=== PATIENT | female | born 1950 | race Caucasian/White ===

== ENCOUNTER 2019-06-11 11:20 | Observation (INO) | payer MEDICARE ==
[~2019-06-11 11:20] MED LIST: Buffered Lidocaine 1% SYRIN* 1 ML/SYRINGE INTRADERM ONE; Glycopyrrolate IV* 0.2 MG/ML 1 ML VIAL ONE; Lactated Ringers 1000 ML Bag* 1,000 ML IV SCH; Lidocaine 2% PF * 5 ML VIAL ONE; Midazolam* 1 MG/ML 2 ML VIAL (2 MG) ONE; Neostigmine Methylsulfate* 1 MG/ML 10 ML VIAL (1 mg/ml) ONE; Propofol* 10 MG/ML 20 ML BTL ONE; Rocuronium* 10 MG/ML VIAL ONE; fentaNYL* 50 MCG/ML 2 ML VIAL (100 MCG VIAL) ONE
[2019-06-11] MEDS ORDERED: Lidocaine 1% w EPI 1:200,000* 30 ML VIAL ONE (11:33)
[2019-06-11] MEDS ORDERED: Bupivacaine 0.25% SDV PF* 10 ML VIAL INJ ONE (11:34)
[2019-06-11] MEDS ORDERED: Thrombin 5,000 UNITS* 1 APPLIC KIT - topical use - TOPICAL ONE (11:34)
[2019-06-11] MEDS ORDERED: Bacitracin INJECTION* 50,000 UNITS ONE (11:34)
[2019-06-11] MEDS ORDERED: ceFAZolin 2 GM in NS PREMIX(*) 2 GM/100 ML BAG IVPB ONE (11:43)
[2019-06-11] MEDS ORDERED: Buffered Lidocaine 1% SYRIN* 1 ML/SYRINGE INTRADERM ONE (11:43)
[2019-06-11] MEDS ORDERED: Phenylephrine 40 MCG/ML SYRINGE ONE (12:26)
[2019-06-11] MEDS ORDERED: Ondansetron INJ* 2 MG/ML VIAL ONE (13:03)
[2019-06-11] MEDS ORDERED: Metoclopramide IV* 5 MG/ML 2 ML VIAL ONE (13:03)
[2019-06-11] MEDS ORDERED: Dexamethasone IV* 4 MG/ML 1 ML (4 MG) ONE (13:03)
[2019-06-11] MEDS ORDERED: Ketorolac INJ* 30 MG/ML 1 ML VIAL ONE (13:03)
[2019-06-11] MEDS ORDERED: Acetaminophen IV 1GM/100ML * 100 ML ONE (13:03)
[2019-06-11] MEDS ORDERED: Phenylephrine 10 MG/ML VIAL* 1 ML VIAL ONE (13:13)
[2019-06-11] MEDS ORDERED: Rocuronium* 10 MG/ML VIAL ONE (13:22)
[2019-06-11] MEDS ORDERED: DiMENhydriNATE IV* 50 MG/ML VIAL IV PUSH PRN (14:33)
[2019-06-11] MEDS ORDERED: Naloxone* 0.4 MG/ML 1 ML VIAL IV PRN (14:33)
[2019-06-11] MEDS ORDERED: Sugammadex * 200 MG/2 ML VIAL IV PUSH ONE (15:26)
[2019-06-11] MEDS ORDERED: Ondansetron INJ* 2 MG/ML VIAL IV PRN (16:06)
[2019-06-11] MEDS ORDERED: Magnesium Hydroxide LIQ* 30 ML UDC PO PRN (16:06)
[2019-06-11] MEDS ORDERED: Acetaminophen TAB* 325 MG PO PRN (16:06)
[2019-06-11] MEDS ORDERED: Cyclobenzaprine TAB* 10 MG PO PRN (16:15)
[2019-06-11] MEDS ORDERED: oxyCODONE TAB* 5 MG TAB ONE (16:32)
[2019-06-11] MEDS ORDERED: HYDROmorphone INJ1* 1 MG/ML SYRINGE ONE (16:32)
[2019-06-11] MEDS: oxyCODONE TAB* 5 MG TAB PO PRN ×2 (16:34→16:38)
[2019-06-11] MEDS: HYDROmorphone INJ1* 1 MG/ML SYRINGE IV PRN ×3 (16:34→16:57)
[2019-06-11] MEDS ORDERED: Lactated Ringers 1000 ML Bag* 1,000 ML IV SCH (17:00)
[2019-06-11] MEDS ORDERED: Atorvastatin* 10 MG TAB PO SCH (18:00)
[2019-06-11] MEDS ORDERED: Docusate CAP* 100 MG PO PRN (19:50)
[2019-06-11] MEDS ORDERED: Senna TAB PO PRN (19:50)
--- NOTE | 2019-06-11 20:48 | CONS ---
CC: Dr. Leeanne Marcano * CONSULTATION REPORT: DATE OF CONSULT: 06/11/19 PRIMARY CARE PROVIDER: Dr. Leeanne Marcano. ATTENDING PHYSICIAN: Dr. Tonie Purvis (dictated by Aide Joel, NEGRA) REQUESTING PHYSICIAN: Dr. Naranjo. REASON FOR CONSULTATION: Co-medical management of hypertension and diabetes. PRIMARY DIAGNOSIS: Status post L4-L5 diskectomy. HISTORY OF PRESENT ILLNESS/HOSPITAL COURSE: Mrs. Chávez is a 69-year-old female with a past medical history significant for diabetes, hypertension, hyperlipidemia, GERD; who presented to [facility] today for an elective L4-L5 diskectomy. Please see history and physical dictated by Dr. Naranjo on 05/25 for complete summary of events leading up to the hospitalization. PAST MEDICAL HISTORY: 1. Diabetes. 2. Hyperlipidemia. 3. Hypertension. 4. GERD. 5. Shingles. 6. ALEC, uses CPAP. PAST SURGICAL HISTORY: 1. Arthroscopy, left knee. 2. Lumbar laminectomy. 3. Cholecystectomy. 4. Appendectomy. 5. Tonsils and adenoid removal. ALLERGIES: The patient is allergic to CODEINE, METFORMIN, LEVEMIR. FAMILY HISTORY: Mother is and had history of hypertension and diabetes. Father is also and carried a medical history of hypertension , CAD, and colon CA. SOCIAL HISTORY: The patient lives with her . The patient uses a cane occasionally for ambulation. The patient does not smoke. The patient does not use illicit drugs. The patient rarely consumes alcohol. REVIEW OF SYSTEMS: The patient reports low back pain and rates it at "2/10." The patient denies chest pain, shortness of breath, nausea, vomiting, numbness, tingling, weakness, fever, or chills. A 14-point review of systems was completed and all were negative. PHYSICAL EXAM: General: Mrs. Chávez is a 69-year-old female who is lying in bed in short stay surgical unit. Appears to be in no acute distress. Appears stated age. Vital Signs: Temp 97.9, HR 70, RR 16, O2 saturation is 96% on 3 L, BP 118/57. HEENT: EOMs intact. PERRLA. Oral mucosa is moist without lesions. Posterior pharynx is clear. Neck: Supple. No lymphadenopathy. Cardiac: S1 and S2 present. No murmurs, rubs or gallops. Regular rate and rhythm. Respiratory: Lungs are clear bilaterally. Good aeration. No wheezes, rhonchi, or rubs. Abdomen: Soft, nontender. Bowel sounds normoactive. Extremities: No edema. No clubbing or cyanosis. No calf tenderness. Pedal pulses 2+ bilaterally. Extremities: No pain or deformities. Skin: Skin is grossly intact without lesions. Dressing to lumbar spine looks clean, dry, and intact. Neuro: Neuro exam is grossly intact. Strength is 5/5 in upper and lower extremities. DIAGNOSTIC STUDIES/LAB DATA: CBC obtained 06/03/19; WBC 8.1, hemoglobin 13.1, hematocrit 40, platelets 340. BMP obtained 06/03/19; sodium 142, potassium 3.9 , chloride 108, carbon dioxide 25, BUN 15, creatinine 0.72. Glucose 104, hemoglobin A1c 7.2. ASSESSMENT AND PLAN: Mrs. Chávez is a 69-year-old female who carries a past medical history of diabetes, hyperlipidemia, hypertension, GERD, shingles, ALEC; who presented to [facility] today for an elective L4-L5 diskectomy. 1. L4-L5 diskectomy: The patient is postop day 0. The patient currently states pain is controlled. Pain medication has been ordered by the primary team of Neurosurgery. I will defer further management to Neurosurgery. 2. Diabetes: The patient reports she takes insulin 70/30 50 units in the morning and 60 units at night. It appears the neurosurgical team has ordered her insulin at a lower dose of 48 units subcu b.i.d. I agree with this adjustment and would encourage decreasing further if needed depending on the patient's intake. I have also ordered fingersticks a.c. and h.s. to monitor for hypoglycemia. 3. Hyperlipidemia: The patient should continue her statin. 4. Hypertension: The patient is on amlodipine, atenolol and ramipril. The patient reports she took all of her blood pressure medications this morning. The patient is normotensive with an average BP today in the 130s to 120s. Neurosurgery has gone ahead and reordered all of her blood pressure medications. I agree with this plan. I would recommend monitoring her blood pressure and holding her DEONTE first if she is hypotensive, then her amlodipine. I would refrain from holding her atenolol to avoid rebound tachycardia. 5. Gastroesophageal reflux disease: I will continue the patient's pantoprazole. 6. Shingles: The patient reports, she has shingles in her right shoulder and continues to have postherpetic pain. The patient is currently on gabapentin which has been reordered by the neurosurgery team and I agree with this plan. 7. Obstructive sleep apnea: The patient has a history of obstructive sleep apnea and has her CPAP with her. I will place an order for the patient to use her CPAP. I will also place an order for oxygen monitoring given she is postop. 8. FEN: Neurosurgery has ordered IV fluids and also a diet for the patient. 9. DVT prophylaxis: I will defer DVT prophylaxis to Neurosurgery who have ordered SCDs. 10. Code status: The patient is a full code. TIME SPENT: Approximately 35 minutes was spent on this consultation, greater than half of this time was spent with the patient obtaining my history, performing physical exam, and discussing my plan of care. This plan was discussed with my attending, Dr. Purvis, who is in agreement with my plan of care. Thank you very much for allowing us to assist in the care of this patient. We will follow along with you. AIDE JOEL, NEGRA [id number]/[facility] #: [id number] [place]
--- NOTE | 2019-06-11 21:15 | OP ---
DATE OF OPERATION: 06/11/19 - ROOM #348 DATE OF : 52 SURGEON: Femi Naranjo MD. HUNTING SALES LEADER: ANNA Triplett. The case was done with the assistance of surgical PA because of the complexity of the case. ANESTHESIA: General. PRE-OP DIAGNOSIS: Left L5-S1 herniated nucleus pulposus. POST-OP DIAGNOSIS: Left L5-S1 herniated nucleus pulposus. OPERATIVE PROCEDURE: The patient underwent left L5-S1 lumbar microdiskectomy with lysis of adhesions and foraminotomies. ESTIMATED BLOOD LOSS: 10 cc. COMPLICATIONS: None. SUMMARY: The patient is a very pleasant 69-year-old female with complaints of back pain radiating to the left lower extremity with left footdrop. The patient was found to have a L5 radiculopathy based on the EMG findings and MRI revealed a large left L5- S1 disk herniation. Please note that the patient had transitional anatomy based on her MRI and counting will be referred to the MRI counting scheme. After explaining the expectations, limitations, and possible complications of the procedure to the patient and her with complications including, but not limited to bleeding, infection, risk of injury to adjacent structures, coma, paralysis, , need for additional procedures, anesthesia risks, stroke, blindness, cancer, instability, spinal fluid leak, injury to intraabdominal contents, vascular injury, loss of bladder or bowel control, postoperative hematoma formation, possibility of deep venous thrombosis and pulmonary embolism, need for prolonged ICU stay, prolonged hospitalization, and prolonged rehabilitation; the patient and her were agreeable to proceed with surgery and informed consent was obtained. The patient understood that the operative plan may be modified according to intraoperative findings and conditions and the case may be abandoned or done in more than 1 stages. She understood that she may need to have additional procedures in the future. DESCRIPTION OF PROCEDURE: The patient was brought to the operating room and was placed under general anesthesia by the anesthesia team. She was carefully positioned prone on a Eddie frame on the Martin table and all bony prominences were meticulously padded. Her skin was prepped and draped in the standard fashion. After appropriate surgical pause and patient identification, the previous midline incision was identified and marked on the skin. With the assistance of intraoperative fluoroscopic imaging, the appropriate surgical level was identified and a small incision over the L5-S1 disk space was then marked on the skin. The skin was infiltrated with local anesthetic and a #10 surgical blade was used to incise the skin. The incision was carried down to the dorsal fascia and the dorsal fascia was divided with use of Bovie cautery to the left of the midline. The paraspinal musculature was elevated in a subperiosteal fashion with use of periosteal elevator and Bovie cautery. Self-retaining retractors were introduced further into the field and a second intraoperative imaging confirmed appropriate surgical level. A significant amount of scar tissue was identified as well as remnants of the previous laminotomy in that level. After careful exposure of the bony surfaces , a high-speed drill was used to enlarge the laminotomy as well as performing limited medial facetectomy. With use of Kerrison punches and Codman curettes, the thecal sac was exposed caudally and distally from the previous surgical field to the levels of normal dura. The left L5 nerve root was then exposed with the use of #2 Kerrison punches and foraminotomy was performed. After lysis of adhesions, the thecal sac and the nerve root was gently retracted medially and after incising the annulus fibrosus with a 15 surgical blade, a diskectomy was performed at that level. Of note, significant amount of calcification was encountered at the level of the posterior longitudinal ligament. This was gently removed with pituitary rongeurs and down-pushing curettes. At the end of the diskectomy, which was performed with assistance of pituitary rongeurs and down-pushing curettes, the thecal sac and the nerve root were found to be free of any pressure phenomenon. After copious irrigation, confirmation of meticulous hemostasis and meticulous inspection, the self- retaining retractor was gently removed and after confirmation of meticulous hemostasis, copious irrigation and meticulous inspection, the wound was closed by layers. A 0 undyed Vicryl suture was used to approximate the dorsal fascia while the subcutaneous tissue was approximated with inverted interrupted 2-0 Vicryl sutures. The skin was then covered with Dermabond. At the end of the procedure, all counts were reported to be correct. The patient remained hemodynamically stable throughout the case. She was then turned supine, was extubated and was transferred to Recovery in excellent condition. The case was done with the assistance of jose guadalupe CASTILLO because of the complexity of the case. [id number]/[facility] #: [id number] [place]
[2019-06-11] MEDS: oxyCODONE/Acetamin 5/325 MG* TAB PO PRN (22:19)
[2019-06-11] MEDS: Gabapentin CAP(*) 300 MG PO SCH (22:19)
[2019-06-11] MEDS: Ramipril CAP* 10 MG PO SCH (22:20)
[2019-06-11] MEDS: Insulin ISOPH/REG 70/30 (*) 1 UNITS UNIT SUBCUT SCH (22:22)
[2019-06-12 07:33] VITALS: BP 114/51
[2019-06-12] MEDS: oxyCODONE/Acetamin 5/325 MG* TAB PO PRN (07:56)
[2019-06-12] MEDS ORDERED: Atenolol TAB* 25 MG PO SCH (09:00)
[2019-06-12] MEDS ORDERED: Pantoprazole TAB * 40 MG TAB PO SCH (09:00)
[2019-06-12] MEDS ORDERED: amLODIPine TAB* 5 MG PO SCH (09:00)
--- NOTE | 2019-06-12 09:13 | PN ---
Progress Note - Progress Note Date of Service: 06/12/19 SOAP: Subjective: 69 y/o female s/p decompression of L4/L5 POD #1 patient is doing well. She reports that her radicular symptoms have improved, the strength in left foot is unchanged, has some post procedure pain from surgery. The pain has been well controlled with medication. She was able to walk wit PT this morning without any devices and tolerated walking stairs. Overall patient is feeling satisfied with her surgery and has no complaints at this time. Objective: Vital Signs - 12 hr Temp Pulse Resp BP Pulse Ox 06/12/19 07:56 16 06/12/19 07:31 98.3 F 62 14 114/51 97 06/12/19 06:00 16 98 06/12/19 04:00 16 98 06/12/19 03:28 98.1 F 58 16 91/42 97 06/12/19 02:00 16 97 06/12/19 01:34 97 06/12/19 00:46 16 06/12/19 00:12 98.3 F 61 16 100/42 97 06/12/19 00:00 16 96 06/11/19 23:51 98.3 F 47 17 157/62 95 06/11/19 22:35 16 96 06/11/19 22:20 16 06/11/19 22:19 16 06/11/19 22:07 98.4 F 73 16 124/55 97 Physical Exam: General: Patient standing just completed walk with PT, calm, NAD Neuro: GCS 15, A&O x3 CN II - XII grossly intact, Sensation intact throughout with light touch, LLE motor strength 5/5 bilateral with hip flexion and extension has decreased strength in left foot with dorsiflexion and plantar flexion 4/5. Derm: wound C/D/I, Assessment: 69 y/o female post decompression of L4/L5, doing well and is ready for discharge. Plan: 1) Follow up with neurosurgery clinic in 1 week 2) Follow up with primary care with in 1 week.
[2019-06-12] MEDS: Ramipril CAP* 10 MG PO SCH (10:41)
[2019-06-12] MEDS: Insulin ISOPH/REG 70/30 (*) 1 UNITS UNIT SUBCUT SCH (11:05)
[2019-06-12] MEDS: Gabapentin CAP(*) 300 MG PO SCH (11:05)
--- NOTE | 2019-06-15 12:00 | DS ---
DISCHARGE SUMMARY: DATE OF ADMISSION: 06/11/19 DATE OF DISCHARGE: 06/12/19 ATTENDING PHYSICIAN: Dr. Naranjo.* (DICTATED BY ANNA JACOBSEN) DIAGNOSIS ON ADMISSION: Left L5-S1 herniated nucleus pulposus. DIAGNOSIS ON DISCHARGE: Left L5-S1 herniated nucleus pulposus. DISPOSITION ON DISCHARGE: Good. PLACE TO DISCHARGE: Home. HOSPITAL DISCOURSE: This patient is a very pleasant 69-year-old female with complaints of back pain radiating to the left lower extremity with left foot drop. The patient was found to have an L5 radiculopathy based on an EMG findings and MRI revealed a large left L5-S1 disc herniation. Please note that the patient had transitional anatomy based on her MRI counting and will be referred to the MRI counting scheme. After explaining the complications, the patient was consented for surgery. The patient had a microdiscectomy of the left L5-S1, which she tolerated very well. She was taken to the PACU after surgery, shortly after was transferred to the short-stay surgery unit. She was placed there for 24-hour observation. She did very well, her pain was well controlled. The patient was able to walk with PT/OT, was actually demonstrating the ability to walk up and down the stairs without issue. Her pain was well controlled. She felt stable and felt she was ready to go home. After reviewing all her vitals and reports overnight, the patient was recommended for discharge home. She was discharged home with pain medication with the instructions of no heavy lifting, bending, nor driving, and to avoid pools and hot tubs, also recommended the patient follow up with primary care within 1 week and Neurosurgery with a week for wound check. The patient understood the instructions and was discharged home. It was a pleasure being a part of this patient's care. ANNA JACOBSEN [id number]/[facility] #: [id number] [place]
== END 2019-06-12 11:35 | disposition home or self-care (01) ==
LOC: OR 11:20 → SSU 16:06
PROVIDERS: ADMIT Neurological Surgery; ATTEND Neurological Surgery
DX: M51.17 Intervertebral disc disorders with radiculopathy, lumbosacral region (principal); M21.372 Foot drop, left foot; Z79.899 Other long term (current) drug therapy; M51.36 Other intervertebral disc degeneration, lumbar region; E11.9 Type 2 diabetes mellitus without complications; Z79.4 Long term (current) use of insulin; E78.5 Hyperlipidemia, unspecified; I10 Essential (primary) hypertension; K21.9 Gastro-esophageal reflux disease without esophagitis; G47.33 Obstructive sleep apnea (adult) (pediatric); Z86.19 Personal history of other infectious and parasitic diseases
CPT/HCPCS: 76000; 96374; 96376; A9270-GY; G0378; G8978-GP-CI; G8979-GP-CI; G8980-GP-CI; J0690; J1100; J1170; J1885; J2001; J2250; J2405; J2704; J2710; J2765; J3010; J3490